=== PATIENT | male | born 1995 | race Caucasian/White ===

== ENCOUNTER 2021-02-13 16:10 | Inpatient (IN) ==
[2021-02-13 16:42] LABS: Bilirubin,Urine Negative (Negative); Blood,Urine Negative (Negative); Clarity,Urine Clear (Clear); Color,Urine Light-Yellow (Yellow); Glucose,Urine (UA) Normal (Normal); Ketones,Urine Negative (Negative); Leukocyte Esterase,Urine Negative (Negative); Nitrite,Urine Negative (Negative); Protein,Urine Negative (Neg-Trace); Specific Gravity,Urine 1.022 (1.010-1.025); Urobilinogen,Urine Normal (Normal)
[2021-02-13 16:45] LABS: Basophils # 0.2 K/mcL (0.0-0.2); Basophils % 1.3 %; Eosinophils # 1.3 K/mcL (0.0-0.6); Eosinophils % 11.6 %; Hematocrit 49.1 % (37.5-50.1); Hemoglobin 16.5 g/dL (12.9-16.9); Immature Granulocytes % 1.1 % (0-4); Lymphocytes # 3.1 K/mcL (0.6-4.6); Lymphocytes % 27.5 %; Mean Corpuscular HGB Conc 33.6 g/dL (31.6-35.5); Mean Corpuscular Hemoglobin 31.2 pg (28.0-33.3); Mean Corpuscular Volume 92.8 fL (83.0-100.0); Monocytes # 0.8 K/mcL (0.0-1.3); Monocytes % 6.7 %; Neutrophils # 5.8 K/mcL (1.6-8.9); Platelet Count 239 K/mcL (140-400); Red Blood Count 5.29 M/mcL (4.19-5.50); Red Cell Distribution Width 12.1 % (11.5-14.5); Segmented Neutrophils % 51.8 %; White Blood Count 11.2 K/mcL (4.3-11.1)
[2021-02-13 16:55] LABS: Amphetamine Screen,Urine Negative ng/mL (Cutoff=1000); Barbiturate Screen,Urine Negative ng/mL (Cutoff=200); Benzodiazepines Screen,Urine Negative ng/mL (Cutoff=200); Cannabinoid Screen,Urine Positive ng/mL (Cutoff = 50); Cocaine Screen,Urine Negative ng/mL (Cutoff= 300); Opiate Screen,Urine Negative ng/mL (Cutoff=300); Phencyclidine Screen,Urine Negative ng/mL (Cutoff=25)
[2021-02-13 17:03] LABS: Acetaminophen < 10 mcg/mL (10-20); BUN/Creatinine Ratio 17 (6-26); Blood Urea Nitrogen 17 mg/dL (6-20); Carbon Dioxide 29 mEq/L (23-29); Chloride 104 mEq/L (98-107); Ethanol < 10 mg/dL (Less than 10); Glucose 121 mg/dL (70-105); Osmolality,Calculated 291 (280-300); Potassium 4.2 mEq/L (3.5-5.1); Salicylate < 2.5 mg/dL (15.0-30.0); Sodium 139 mEq/L (136-145); eGFR For African Americans > 60 (> 60); eGFR For Non-African Americans > 60 (> 60)
[2021-02-13] MEDS ORDERED: Acetaminophen 325 MG TABLET PO PRN (19:20)
[2021-02-13] MEDS ORDERED: Haloperidol Lactate 5 MG/ML VIAL IM PRN (19:20)
[2021-02-13] MEDS ORDERED: haloperidoL 5 MG TABLET PO PRN (19:20)
[2021-02-13] MEDS ORDERED: *HR* LORazepam 1 MG TABLET PO PRN (19:20)
[2021-02-13] MEDS ORDERED: *HR* LORazepam 2 MG/ML VIAL IM PRN (19:20)
[2021-02-13] MEDS ORDERED: traZODone 50 MG TABLET PO PRN (19:20)
[2021-02-13] MEDS ORDERED: hydrOXYzine pamoate 25 MG CAPSULE PO PRN (22:27)
[2021-02-14] MEDS ORDERED: MOM Conc 10 ML UD.LIQ PO PRN (13:23)
[2021-02-14] MEDS ORDERED: Nicotine 2 MG GUM BC PRN (13:23)
[2021-02-14] MEDS: (Vilazodone Hcl [Viibryd] 40 MG Tablet) PO SCH (16:36)
[2021-02-14] MEDS: Mag Hydrox/Al Hydrox/Simeth 30 ML UDC PO PRN (20:32)
[2021-02-15] MEDS: (Vilazodone Hcl [Viibryd] 40 MG Tablet) PO SCH (09:05)
[2021-02-15] MEDS: Mag Hydrox/Al Hydrox/Simeth 30 ML UDC PO PRN (11:22)
[2021-02-16] MEDS: (Vilazodone Hcl [Viibryd] 40 MG Tablet) PO SCH (09:03)
[2021-02-16 09:55] VITALS: BP 117/78
== END 2021-02-16 16:05 | disposition home or self-care (01) | DRG 885 ==
LOC: EMEROOARM 16:10 → 1ANU 19:03
PROVIDERS: ADMIT Psychiatry & Neurology Psychiatry; ATTEND Psychiatry & Neurology Psychiatry